=== PATIENT | female | born 1960 | race Caucasian/White ===

== ENCOUNTER 2018-12-13 06:32 | Emergency (ER) | payer OTHER ==
--- OUTSIDE RECORDS SUMMARY | 2018-12-13 06:35 | XMS REPORT | Continuity of Care Document ---
:1960 Author Organization [employer] Care Team Providers Name Role Phone [employer] Unavailable Unavailable Problems Problem Status Onset Classification Date Comments Source Date Reported Spinal stenosis in Active 01/31/20 Problem 09/22/2018 [facility] cervical region 15 Neuro (disorder) Diabetes mellitus Active Problem 09/22/2018 [facility] (disorder) [facility] Hyperlipidemia Active Problem 09/22/2018 [facility] (disorder) [facility] Hypertensive Active Problem 09/22/2018 [facility] disorder, systemic Neuro arterial (disorder) Hypothyroidism Active Problem 09/22/2018 [facility] (disorder) [facility] Medications Medication Details Route Status Patient Ordering Order Source Instructions Provider Date levothyroxine 88 mcg 88 Active [facility] (0.088 mg) oral microgram 018 Neuro tablet =1 tab, PO, Daily, 0 Refill(s) DULoxetine 20 mg oral 20 mg=1 No [facility] delayed release cap, PO, Longer 018 Neuro capsule QID, 0 Active Refill(s) betamethasone IM, ONCE, Active [facility] 0 018 Neuro Refill(s) Acetaminophen 325 MG 1 tab, Active [facility] / Hydrocodone PO, Q6H, 018 Neuro Bitartrate 5 MG Oral 0 Tablet Refill(s) meloxicam 15 mg oral 15 mg=1 No [facility] tablet tab, PO, Longer 018 Neuro Daily, 0 Active Refill(s) Advair Diskus 100 1 puff, No [facility] mcg-50 mcg inhalation INHALATIO Longer 018 Neuro powder N, BID, 0 Active Refill(s) pantoprazole 40 mg 40 mg=1 Active [facility] oral enteric coated tab, PO, 018 [facility] tablet Daily, 0 Refill(s) cyclobenzaprine 10 mg 10 mg=1 No [facility] oral tablet tab, PO, Longer 018 Neuro TID, 0 Active Refill(s) LORazepam 0.5 mg oral 0.5 mg=1 No [facility] tablet tab, PO, Longer 018 Neuro TID, 0 Active Refill(s) gabapentin 300 MG 300 mg=1 No [facility] Oral Capsule cap, PO, Longer 018 Neuro TID, 0 Active Refill(s) Ventolin HFA 2 puff, No [facility] INHALATIO [place]er 018 Neuro N, QID, 0 Active Refill(s) Vitamin D3 2000 intl 2,000 Active [facility] units oral tablet IntlUnit= 018 Neuro 1 tab, PO, Daily, 0 Refill(s) Hydrochlorothiazide 1 tab, Active [facility] 12.5 MG / Lisinopril PO, 018 Neuro 10 MG Oral Tablet Daily, 0 Refill(s) tramadol 50 mg=1 Active [facility] hydrochloride 50 MG tab, PO, 018 [facility] Oral Tablet Q4H, 0 Refill(s) levothyroxine 25 mcg 25 No [facility] (0.025 mg) oral microgram Longer 018 Neuro tablet =1 tab, Active PO, Daily, 0 Refill(s) baclofen 10 mg oral 10 mg=1 No [facility] tablet tab, PO, Longer 018 Neuro TID, 0 Active Refill(s) DULoxetine 30 mg oral 30 mg=1 No [facility] delayed release cap, PO, Longer 018 Neuro capsule QID, 0 Active Refill(s) pravastatin 40 mg 40 mg=1 Active [facility] oral tablet tab, PO, 018 Neuro Daily, 0 Refill(s) Allergies, Adverse Reactions, Alerts Substance Category Reaction Severity Reaction Status Date Comments Source type Reported Topamax Assertion Mild Drug Active [facility] allergy [facility] Immunizations No Data Provided for This Section Results No Data Provided for This Section Pathology Reports No Data Provided for This Section Diagnostic Reports No Data Provided for This Section Consultation Notes No Data Provided for This Section Discharge Summaries No Data Provided for This Section History and Physicals No Data Provided for This Section Vital Signs Vital Sign Value Date Comments Source Weight 150.455 03/04/2018 [facility] BMI Calculated 58.76 03/04/2018 [facility] Height 160.02 cm 03/04/2018 [facility] Systolic (mm Hg) 120 03/04/2018 [facility] Diastolic (mm Hg) 75 03/04/2018 [facility] Neuro Heart Rate 68 03/04/2018 [facility] Neuro Encounters Location Location Encounter Encounter Reason Attending ADM DC Status Source Details Type Number For Provider Date Date Visit Outpatient [id number] [facility] 02/25 [facility] [place] [facility] Ambulatory [id number] [place] 02/25 02/26 [facility] Neurology Pre-Reg [facility] [place] [id number] [place] 03/04 [facility] [place] [facility] Outpatient [id number] [place] 03/04 03/05 [facility] Neurology [facility] Neuro [place] Procedures No Data Provided for This Section Assessment and Plan No Data Provided for This Section Plan of Care No Data Provided for This Section Social History Social History Date Source Social History TypeResponse 03/04/2018 [facility] Neuro Smoking Status Former smoker; Exposure to Tobacco Smoke Unable to obtain; Cigarette Smoking Last 365 Days Unable to obtain; Reg Smoking Cessation Counseling No entered on: 03/04/18 Family History No Data Provided for This Section Advance Directives No Data Provided for This Section Functional Status No Data Provided for This Section
--- OUTSIDE RECORDS SUMMARY | 2018-12-13 06:35 | XMS REPORT | Summary of Care ---
:1960 Author Organization [facility] Neurology [place] Address [address] [place] [address]- Encounter HQ Peng(KITTY) [id number] Date(s): 03/04/18 - 03/04/18 [facility] [address] [place] [address]- [phone] Discharge Disposition: Home or Self Care Attending Physician: Isrrael Vega MD Vital Signs Most recent to oldest [Reference Range]: 1 Height 160.02 cm (03/04/18 1:20 PM) Blood Pressure [90-140/60-90 mmHg] 120/75 mmHg (03/04/18 1:20 PM) Peripheral Pulse Rate [60-100 bpm] 68 bpm (03/04/18 1:20 PM) Weight 150.455 kg (03/04/18 1:20 PM) Body Mass Index 58.76 m2 (03/04/18 1:20 PM) Problem List Condition Effective Dates Status Health Status Informant Diabetes mellitus(Confirmed) Active Hyperlipidemia(Confirmed) Active Hypertension(Confirmed) Active Hypothyroidism(Confirmed) Active Spinal stenosis, cervical 01/30/15 Active region(Confirmed) Allergies, Adverse Reactions, Alerts Substance Reaction Severity Status Topamax Mild Active Medications acetaminophen-hydrocodone 325 mg-5 mg oral tablet 1 tab, PO, Q6H, 0 Refill(s) Start Date: 06/19/17 Status: OrderedAdvair Diskus 100 mcg-50 mcg inhalation powder 1 puff, INHALATION, BID, 0 Refill(s) Start Date: 06/19/17 Stop Date: 03/04/18 Status: Discontinuedbaclofen 10 mg oral tablet 10 mg=1 tab, PO, TID, 0 Refill(s) Start Date: 06/19/17 Stop Date: 03/04/18 Status: Discontinuedbetamethasone IM, ONCE, 0 Refill(s) Start Date: 06/19/17 Status: Orderedcyclobenzaprine 10 mg oral tablet 10 mg=1 tab, PO, TID, 0 Refill(s) Start Date: 06/19/17 Stop Date: 03/04/18 Status: DiscontinuedDULoxetine 20 mg oral delayed release capsule 20 mg=1 cap, PO, QID, 0 Refill(s) Start Date: 06/19/17 Stop Date: 03/04/18 Status: DiscontinuedDULoxetine 30 mg oral delayed release capsule 30 mg=1 cap, PO, QID, 0 Refill(s) Start Date: 06/19/17 Stop Date: 03/04/18 Status: Discontinuedgabapentin 300 mg oral capsule 300 mg=1 cap, PO, TID, 0 Refill(s) Start Date: 06/19/17 Stop Date: 03/04/18 Status: Discontinuedhydrochlorothiazide-lisinopril 12.5 mg-10 mg oral tablet 1 tab, PO, Daily, 0 Refill(s) Start Date: 06/19/17 Status: Orderedlevothyroxine 25 mcg (0.025 mg) oral tablet 25 microgram=1 tab, PO, Daily, 0 Refill(s) Start Date: 06/19/17 Stop Date: 03/04/18 Status: Discontinuedlevothyroxine 88 mcg (0.088 mg) oral tablet 88 microgram=1 tab, PO, Daily, 0 Refill(s) Start Date: 03/04/18 Status: OrderedLORazepam 0.5 mg oral tablet 0.5 mg=1 tab, PO, TID, 0 Refill(s) Start Date: 06/19/17 Stop Date: 03/04/18 Status: DiscontinuedLORazepam 0.5 mg oral tablet 0.5 mg=1 tab, PO, TID, 0 Refill(s) Start Date: 06/19/17 Status: Orderedmeloxicam 15 mg oral tablet 15 mg=1 tab, PO, Daily, 0 Refill(s) Start Date: 06/19/17 Stop Date: 03/04/18 Status: Discontinuedpantoprazole 40 mg oral enteric coated tablet 40 mg=1 tab, PO, Daily, 0 Refill(s) Start Date: 06/19/17 Status: Orderedpravastatin 40 mg oral tablet 40 mg=1 tab, PO, Daily, 0 Refill(s) Start Date: 06/19/17 Status: Orderedtramadol 50 mg oral tablet 50 mg=1 tab, PO, Q4H, 0 Refill(s) Start Date: 06/19/17 Status: OrderedVentolin HFA 2 puff, INHALATION, QID, 0 Refill(s) Start Date: 06/19/17 Stop Date: 03/04/18 Status: DiscontinuedVitamin D3 2000 intl units oral tablet 2,000 IntlUnit=1 tab, PO, Daily, 0 Refill(s) Start Date: 06/19/17 Status: Ordered Results No data available for this section Immunizations No data available for this section Procedures No data available for this section Social History Social History Type Response Smoking Status Former smoker; Exposure to Tobacco Smoke Unable to obtain; Cigarette Smoking Last 365 Days Unable to obtain; Reg Smoking Cessation Counseling No entered on: 03/04/18 Assessment and Plan No data available for this section
--- OUTSIDE RECORDS SUMMARY | 2018-12-13 06:35 | XMS REPORT | Summary of Care ---
:1960 Author Organization [facility] Neurology [place] Address [address] [place] [address]- phone Encounter [facility] Anujntr_valdo(FIN) [id number] Date(s): 02/25/18 - 02/25/18 [facility] [address] [place] [address]- [phone] Discharge Disposition: Home or Self Care Attending Physician: Isrrael Vega MD Referring Physician: Isrrael Vega MD Vital Signs No data available for this section Problem List Condition Effective Dates Status Health Status Informant Diabetes mellitus(Confirmed) Active Hyperlipidemia(Confirmed) Active Hypertension(Confirmed) Active Hypothyroidism(Confirmed) Active Spinal stenosis, cervical 01/30/15 Active region(Confirmed) Allergies, Adverse Reactions, Alerts Substance Reaction Severity Status Topamax Mild Active Medications No data available for this section Results No data available for this section [...]
[2018-12-13] MEDS ORDERED: dexAMETHasone 10 MG/ML VIAL ONE (07:38)
[2018-12-13] MEDS ORDERED: DIAZEPAM 5 MG TABLET ONE (07:38)
[2018-12-13] MEDS ORDERED: MORPHINE 4 MG/ML SYR ONE (07:39)
[2018-12-13] MEDS ORDERED: KETOROLAC 30 MG/ML INJ ONE (07:39)
--- NOTE | 2018-12-13 09:05 | ER ---
Nurse's Notes [facility] Name: Mayda Jean Age: 58 yrs Sex: Female : 1960 Arrival Date: 12/13/2018 Time: 06:34 Bed 6 Private MD: Diagnosis: Lumbago with sciatica, left side;Urinary tract infection, site not specified Presentation: 12/13 06:44 Presenting complaint: Patient states: mid to left lower back pain X3 days. pt describes ak1 pain as sharp pain. pt with constant numbness to left leg for "a while" pt PCP dx sciatica with MRI needing to be scheduled. Transition of care: patient was not received from another setting of care. Onset of symptoms is unknown. Risk Assessment: Do you want to hurt yourself or someone else? Patient reports no desire to harm self or others. Initial Sepsis Screen: Does the patient meet any 2 criteria? No. Patient's initial sepsis screen is negative. Does the patient have a suspected source of infection? No. Patient's initial sepsis screen is negative. Note pt ambulates with a cane. Care prior to arrival: None. 06:44 Method Of Arrival: Wheelchair ak1 06:44 Acuity: LUIS 3 ak1 Triage Assessment: 06:52 General: Appears in no apparent distress. Behavior is calm, cooperative. Pain: ak1 Complains of pain in back. EENT: No signs and/or symptoms were reported regarding the EENT system. Neuro: Level of Consciousness is awake, alert, obeys commands, Oriented to person, place, time, situation, Moves all extremities. Speech is normal. Cardiovascular: No deficits noted. Respiratory: Airway is patent Respiratory effort is even, unlabored. GI: No signs and/or symptoms were reported involving the gastrointestinal system. : No signs and/or symptoms were reported regarding the genitourinary system. Derm: No signs and/or symptoms reported regarding the dermatologic system. Musculoskeletal: Range of motion: limited in left leg due to pain. Reports pain in back. Historical: - Allergies: 06:52 Topamax; ak1 - Home Meds: 06:52 levothyroxine oral [Active]; Lisinopril Oral [Active]; pravastatin oral oral [Active]; ak1 Vitamin D Oral [Active]; Ventolin Rotahaler/Rotacaps Inhl [Active]; [place] Oral [Active]; Tramadol Oral [Active]; - PMHx: 06:52 COPD; Hypothyroidism; High Cholesterol; Hypertension; Headaches; ak1 - PSHx: 06:52 Cholecystectomy; left heel sx; neck fusion; ak1 - Immunization history:: Adult Immunizations unknown. - Social history:: Smoking status: Patient/guardian denies using tobacco. - Ebola Screening: : No symptoms or risks identified at this time. Screenin:54 Abuse screen: Denies threats or abuse. Denies injuries from another. Nutritional ak1 screening: No deficits noted. Tuberculosis screening: No symptoms or risk factors identified. Fall Risk Ambulatory Aid- Crutches/Cane/Walker (15 pts). Assessment: 07:15 General: Appears in no apparent distress. Behavior is calm, cooperative. Pain: iw Complains of pain in back Pain radiates to left leg. Neuro: Level of Consciousness is awake, alert, obeys commands, Oriented to person, place, time, situation, Moves all extremities. Cardiovascular: Patient's skin is warm and dry. Respiratory: Respiratory effort is even, unlabored, Respiratory pattern is regular. Derm: Skin is intact, is healthy with good turgor. Musculoskeletal: 08:23 Reassessment: Patient appears in no apparent distress at this time. Patient and/or iw family updated on plan of care and expected duration. Pain level reassessed. Patient is alert, oriented x 3, equal unlabored respirations, skin warm/dry/pink. 08:41 Reassessment: pt states pain has improved, pain now 5/10. iw 09:12 Reassessment: Patient appears in no apparent distress at this time. Patient and/or iw family updated on plan of care and expected duration. Pain level reassessed. Patient is alert, oriented x 3, equal unlabored respirations, skin warm/dry/pink. Patient states feeling better. Patient states symptoms have improved. Vital Signs: 06:52 BP 153 / 82; Pulse 77; Resp 20; Temp 98.0; Pulse Ox 95% on R/A; Weight 158.76 kg (R); ak1 Height 5 ft. 4 in. (162.56 cm) (R); Pain 10/10; 06:52 Body Mass Index 60.08 (158.76 kg, 162.56 cm) ak1 ED Course: 06:34 Patient arrived in ED. ds1 06:37 Filiberto Gregg PA is PHCP. [facility] 06:37 Joshua Villeda MD is Attending Physician. [facility] 06:48 Triage completed. ak1 06:52 Arm band placed on Patient placed in an exam room, on a stretcher, on pulse oximetry, ak1 Patient notified of wait time. 06:54 Patient has correct armband on for positive identification. Bed in low position. Call ak1 light in reach. Side rails up X 1. Adult w/ patient. Pulse ox on. NIBP on. 07:08 Amanda Eugene, RN is Primary Nurse. iw 08:23 No provider procedures requiring assistance completed. Patient did not have IV access iw during this emergency room visit. 08:41 Urine collected: hat,yellow \\T\\ cloudy. 3 Administered Medications: 07:42 Drug: Ketorolac 30 mg Route: IM; Site: right deltoid; iw 08:53 Follow up: Response: No adverse reaction; Pain is decreased iw 07:45 Drug: morphine 4 mg {Note: RASS:0.} Route: IM; Site: left deltoid; iw 08:52 Follow up: Response: No adverse reaction; Pain is decreased; RASS: Alert and Calm (0) iw 07:47 Drug: Valium 5 mg Route: PO; iw 08:53 Follow up: Response: No adverse reaction iw 07:47 Drug: Decadron 10 mg Route: IM; Site: left deltoid; iw 08:53 Follow up: Response: No adverse reaction; Pain is decreased iw Outcome: 09:04 Discharge ordered by . [facility] 09:15 Discharged to home ambulatory, with family. ss 09:15 Condition: good 09:15 Discharge instructions given to patient, family, Instructed on discharge instructions, follow up and referral plans. medication usage, Demonstrated understanding of instructions, follow-up care, medications, Prescriptions given X 3. 09:16 Patient left the ED. ss Signatures: Filiberto Gregg PA PA jmm Sanford, Demi ds1 Amanda Eugene, YANIQUE CHANEL Cristina De Paz RN RN Sneha Keys RN RN [facility] Kianna Gutierrez [facility]
--- NOTE | 2018-12-13 09:05 | EDPHYS ---
Physician Documentation [facility] Name: Mayda Jean Age: 58 yrs Sex: Female : 1960 Arrival Date: 12/13/2018 Time: 06:34 Bed 6 Private MD: ED Physician Joshua Villeda HPI: 12/13 07:07 This 58 yrs old Female presents to ER via Wheelchair with complaints of Back jmm Pain. 07:07 The patient presents with pain that is acute, with no known mechanism of injury. Onset: jmm The symptoms/episode began/occurred gradually, 2 day(s) ago. The pain radiates to the left leg. Associated signs and symptoms: Pertinent positives: numbness, Pertinent negatives: abdominal pain, dysuria, fever, urinary retention. This is a 58 year old female with a history of COPD, hypothyroidism, HTN, that presents to the ED with complaints of worsening left sided back pain which radiates down the leg. Patient denies bowel or bladder issues. Denies fever, denies vomiting, denies abdominal pain, but states having nausea. . Historical: - Allergies: 06:52 Topamax; ak1 - Home Meds: 06:52 levothyroxine oral [Active]; Lisinopril Oral [Active]; pravastatin oral oral [Active]; ak1 Vitamin D Oral [Active]; Ventolin Rotahaler/Rotacaps Inhl [Active]; [place] Oral [Active]; Tramadol Oral [Active]; - PMHx: 06:52 COPD; Hypothyroidism; High Cholesterol; Hypertension; Headaches; ak1 - PSHx: 06:52 Cholecystectomy; left heel sx; neck fusion; ak1 - Immunization history:: Adult Immunizations unknown. - Social history:: Smoking status: Patient/guardian denies using tobacco. - Ebola Screening: : No symptoms or risks identified at this time. ROS: 07:07 Constitutional: Negative for fever, chills, and weight loss, Neck: Negative for injury, jmm pain, and swelling, Respiratory: Negative for shortness of breath, cough, wheezing, and pleuritic chest pain. 07:07 Abdomen/GI: Positive for nausea, Negative for abdominal pain, vomiting, diarrhea. 07:07 Back: Positive for pain with movement. 07:07 All other systems are negative. Exam: 07:07 Constitutional: This is a well developed, well nourished patient who is awake, alert, jmm and in no acute distress. Head/Face: atraumatic. Eyes: EOMI, no conjunctival erythema appreciated ENT: Moist Mucus Membranes Neck: Trachea midline, Supple Chest/axilla: Normal chest wall appearance and motion. Cardiovascular: Regular rate and rhythm. No edema appreciated Respiratory: Normal respirations, no respiratory distress appreciated 07:07 Skin: General appearance color normal MS/ Extremity: Moves all extremities, no obvious deformities appreciated, no edema noted to the lower extremities Neuro: Awake and alert, normal gait Psych: Behavior is normal, Mood is normal, Patient is cooperative and pleasant 07:07 Back: left paraspinal pain on palpation, no midline tenderness appreciated. . Vital Signs: 06:52 BP 153 / 82; Pulse 77; Resp 20; Temp 98.0; Pulse Ox 95% on R/A; Weight 158.76 kg (R); ak1 Height 5 ft. 4 in. (162.56 cm) (R); Pain 10/10; 06:52 Body Mass Index 60.08 (158.76 kg, 162.56 cm) ak1 MDM: 07:07 Patient medically screened. [facility] 09:04 Data reviewed: vital signs, nurses notes. Counseling: I had a detailed discussion with [facility] the patient and/or guardian regarding: the historical points, exam findings, and any diagnostic results supporting the discharge/admit diagnosis, the need for outpatient follow up, to return to the emergency department if symptoms worsen or persist or if there are any questions or concerns that arise at home. 09:04 ED course: Pain is relieved in the ED. Patient is able to ambulate. I do not suspect [facility] [place] or cord compression. patient ua concerning for UTI. Patient is otherwise given strict return precautions. Patient understood and agrees with the plan of care. . 12/13 08:50 Order name: Urine Dipstick--Ancillary (enter results) 12/13 08:50 Order name: Urine --Ancillary (enter results) bd 12/13 07:21 Order name: Urine Dipstick-Ancillary (obtain specimen); Complete Time: 07:35 [facility] Administered Medications: 07:42 Drug: Ketorolac 30 mg Route: IM; Site: right deltoid; iw 08:53 Follow up: Response: No adverse reaction; Pain is decreased iw 07:45 Drug: morphine 4 mg {Note: RASS:0.} Route: IM; Site: left deltoid; iw 08:52 Follow up: Response: No adverse reaction; Pain is decreased; RASS: Alert and Calm (0) iw 07:47 Drug: Valium 5 mg Route: PO; iw 08:53 Follow up: Response: No adverse reaction iw 07:47 Drug: Decadron 10 mg Route: IM; Site: left deltoid; iw 08:53 Follow up: Response: No adverse reaction; Pain is decreased iw Disposition: 12/13/18 09:04 Discharged to Home. Impression: Lumbago with sciatica, left side, Urinary tract infection, site not specified. - Condition is Stable. - Discharge Instructions: Sciatica, Urinary Tract Infection, Adult. - Prescriptions for Cephalexin 500 mg Oral Capsule - take 1 capsule by ORAL route every 12 hours for 10 days; 20 capsule. Valium 5 mg Oral Tablet - take 1 tablet by ORAL route every 8 hours As needed; 20 tablet. - Medication Reconciliation Form, Thank You Letter, Antibiotic Education, Prescription Opioid Use form. - Follow up: Private Physician; When: 2 - 3 days; Reason: Recheck today's complaints, Continuance of care, Re-evaluation by your physician. Signatures: Dispatcher [employer] EDMS Filiberto Gregg PA PA jmm Williams, Irene RN Cristina Long RN RN ss Krenek, Amber RN RN ak1 Corrections: (The following items were deleted from the chart) 09:05 09:04 12/13/2018 09:04 Discharged to Home. Impression: Lumbago with sciatica, left m side. Condition is Stable. Forms are Medication Reconciliation Form, Thank You Letter, Antibiotic Education, Prescription Opioid Use. Follow up: Private Physician; When: 2 - 3 days; Reason: Recheck today's complaints, Continuance of care, Re-evaluation by your physician. nhan 09:16 09:05 12/13/2018 09:04 Discharged to Home. Impression: Lumbago with sciatica, left ss side; Urinary tract infection, site not specified. Condition is Stable. Discharge Instructions: Sciatica. Forms are Medication Reconciliation Form, Thank You Letter, Antibiotic Education, Prescription Opioid Use. Follow up: Private Physician; When: 2 - 3 days; Reason: Recheck today's complaints, Continuance of care, Re-evaluation by your physician. nhan
[2018-12-13 10:35] LABS: Urine Blood 1+ (NEG); Urine Glucose NEGATIVE (NEG); Urine Protein NEGATIVE (NEG)
[2018-12-13 15:19] VITALS: BP 153/82; TEMP 98; O2SAT 95
== END 2018-12-13 09:16 | disposition home or self-care (01) ==
LOC: ER 06:32
DX: N39.0 Urinary tract infection, site not specified (principal); I10 Essential (primary) hypertension; J44.9 Chronic obstructive pulmonary disease, unspecified; E03.9 Hypothyroidism, unspecified; E78.00 Pure hypercholesterolemia, unspecified; Z88.8 Allergy status to other drugs, medicaments and biological substances
CPT/HCPCS: 81025; 81003; 96372; 99284; J1100

== ENCOUNTER → 2023-06-20 | Emergency (ER) | payer OTHER ==
[~2023-06-20] MED LIST: KETOROLAC 30 MG/ML INJ ONE; dexAMETHasone 10 MG/ML VIAL ONE
--- NOTE | 2023-06-20 18:09 | ER ---
Nurse's Notes [facility] Name: Mayda Jean Age: 63 yrs Sex: Female : 1960 Arrival Date: 06/20/2023 Time: 17:52 Bed 20 Private MD: Diagnosis: Low back pain Presentation: 06/19 18:04 Chief complaint: Patient states: left low back pain since Thursday, pt reports pain aa5 started getting up from a alexander. 18:05 Coronavirus screen: At this time, the client does not indicate any symptoms associated aa5 with coronavirus-19. Ebola Screen: Patient denies travel to an Ebola-affected area in the 21 days before illness onset. Initial Sepsis Screen: Does the patient meet any 2 criteria? No. Patient's initial sepsis screen is negative. Does the patient have a suspected source of infection? No. Patient's initial sepsis screen is negative. Risk Assessment: Do you want to hurt yourself or someone else? Patient reports no desire to harm self or others. Onset of symptoms was June 2023. 18:05 Method Of Arrival: Ambulatory aa5 18:05 Acuity: LUIS 3 aa5 Triage Assessment: 18:05 General: Appears in no apparent distress. uncomfortable, Behavior is calm, cooperative. rs5 Musculoskeletal: Circulation, motion, and sensation intact. Historical: - Allergies: 18:03 Topamax; aa5 - PMHx: 18:03 COPD; Headaches; High Cholesterol; Hypertension; Hypothyroidism; aa5 - Immunization history:: Adult Immunizations unknown. - Social history:: Smoking status: . Screenin:05 [facility] ED Fall Risk Assessment (Adult) History of falling in the last 3 months, rs5 including since admission No falls in past 3 months (0 pts) Confusion or Disorientation No (0 pts) Intoxicated or Sedated No (0 pts) Impaired Gait No (0 pts) Mobility Assist Device Used No (0 pt) Altered Elimination No (0 pt) Score/Fall Risk Level 0 - 2 = Low Risk Oriented to surroundings, Maintained a safe environment. 18:05 Abuse screen: Denies threats or abuse. Nutritional screening: No deficits noted. rs5 Tuberculosis screening: No symptoms or risk factors identified. Assessment: 18:10 General: Appears in no apparent distress. uncomfortable, Behavior is calm, cooperative. rs5 Pain: Complains of pain in back Pain currently is 5 out of 10 on a pain scale. Quality of pain is described as aching, Is continuous. Neuro: Level of Consciousness is awake, alert, obeys commands, Oriented to person, place, time, situation. Cardiovascular: Patient's skin is warm and dry. Rhythm is regular. Cardiovascular:. Respiratory: Respiratory effort is even, unlabored, Respiratory pattern is regular, symmetrical. 18:10 GI: Abdomen is round non-distended, Abd is soft and non tender X 4 quads. : No signs rs5 and/or symptoms were reported regarding the genitourinary system. EENT: No signs and/or symptoms were reported regarding the EENT system. Derm: Skin is intact, Skin is pink, warm \T\ dry. Musculoskeletal: Range of motion: intact in all extremities. 18:15 Reassessment: No changes from previously documented assessment. rs5 Vital Signs: 18:05 BP 131 / 75; Pulse 72; Resp 18 S; Temp 97.5(TE); Pulse Ox 98% on R/A; Weight 153.31 kg aa5 (R); Height 5 ft. 4 in. (R); 18:05 BP 130 / 68; Pulse 75; Resp 18; Pulse Ox 99% on R/A; rs5 18:05 Body Mass Index 58.02 (153.31 kg, 162.56 cm) aa5 ED Course: 17:56 Patient arrived in ED. mg5 18:03 Sara Ayala F[facility]-C [facility]. kb 18:03 Xu Devlin MD is Attending Physician. kb 18:03 Arm band placed on. aa5 18:05 Patient has correct armband on for positive identification. Placed in gown. Bed in low rs5 position. Call light in reach. Side rails up X2. 18:05 No provider procedures requiring assistance completed. rs5 18:06 Triage completed. aa5 18:25 Toni Rodriguez, YANIQUE is Primary Nurse. rs5 18:30 IV discontinued, intact, bleeding controlled, No redness/swelling at site. Pressure rs5 dressing applied. Administered Medications: 18:05 Drug: Ketorolac IM 30 mg IM once Route: IM; Site: right deltoid; rs5 18:20 Follow up: Response: No adverse reaction rs5 18:09 Drug: Dexamethasone IM 10 mg IM once Route: IM; Site: left deltoid; rs5 18:20 Follow up: Response: No adverse reaction rs5 Medication: 18:05 VIS not applicable for this client. rs5 Outcome: 18:08 Discharge ordered by . elver 18:30 Discharged to home ambulatory, rs5 18:30 Condition: stable 18:30 Discharge instructions given to patient, family, Instructed on discharge instructions, follow up and referral plans. Demonstrated understanding of instructions, follow-up care, medications, Prescriptions given X 2, 18:39 Patient left the ED. rs5 Signatures: Sara Ayala, JC-C JC-Caty Carr RN RN aa5 Toni Rodriguez RN RN rs5 Bianca Dotson mg5 Corrections: (The following items were deleted from the chart) 18:06 18:04 Chief complaint: Patient states: left low back pain since Thursday, pt reports aa5 she stood up from a alexander. aa5 18:07 18:05 BP 131 / 75; Pulse 72bpm; Resp 18bpm; Spontaneous; Pulse Ox 98% RA; Temp 97.5F aa5 Temporal; aa5 19:31 18:10 Pain: Complains of pain in back Pain currently is 7 out of 10 on a pain scale. rs5 Quality of pain is described as aching, Is continuous, rs5
--- NOTE | 2023-06-20 18:09 | EDPHYS ---
Physician Documentation [facility] Name: Mayda Jean Age: 63 yrs Sex: Female : 1960 Arrival Date: 06/20/2023 Time: 17:52 Bed 20 Private MD: ED Physician Xu Devlin HPI: 06/19 19:41 This 63 yrs old Female presents to ER via Ambulatory with complaints of Back Pain. kb 19:41 Patient is a 63-year-old female who presents for left low back/buttock pain that kb started 4 days ago after she twisted to get out of a alexander at [employer]. Denies any falls, injury or trauma. Reports pain with movement only. Denies pain at rest or with palpation. Denies any numbness or tingling. Denies incontinence or retention.. Historical: - Allergies: 18:03 Topamax; aa5 - PMHx: 18:03 COPD; Headaches; High Cholesterol; Hypertension; Hypothyroidism; aa5 - Immunization history:: Adult Immunizations unknown. - Social history:: Smoking status: . ROS: 19:41 Constitutional: As per HPI kb Exam: 19:41 Constitutional: This is a well developed, well nourished patient who is awake, alert, kb and in no acute distress. Head/Face: Normocephalic, atraumatic. ENT: Moist Mucous membranes Cardiovascular: Regular rate Respiratory: Respirations even and unlabored. No increased work of breathing. Talking in full sentences Abdomen/GI: Soft, non-tender. No distention Back: No spinal tenderness. No costovertebral tenderness. Full range of motion. Skin: Warm, dry with normal turgor. Normal color. MS/ Extremity: Pulses equal, no cyanosis. Neurovascular intact. Full, normal range of motion. Neuro: Awake and alert, GCS 15, oriented to person, place, time, and situation. Moves all extremities. Normal gait. 19:44 Neuro: Sensation: is normal, kb Vital Signs: 18:05 BP 131 / 75; Pulse 72; Resp 18 S; Temp 97.5(TE); Pulse Ox 98% on R/A; Weight 153.31 kg aa5 (R); Height 5 ft. 4 in. (R); 18:05 BP 130 / 68; Pulse 75; Resp 18; Pulse Ox 99% on R/A; rs5 18:05 Body Mass Index 58.02 (153.31 kg, 162.56 cm) aa5 MDM: 18:03 Patient medically screened. kb 19:43 Differential diagnosis: Strain, herniated disc, sciatica. Data reviewed: vital signs, kb nurses notes. Test considered but Not performed: X-ray: X-ray lumbar spine considered but patient had no injury or trauma and has no bony tenderness. Counseling: I had a detailed discussion with the patient and/or guardian regarding the historical points, exam findings, and any diagnostic results supporting the discharge/admit diagnosis, the need for outpatient follow up, a family practitioner, to return to the emergency department if symptoms worsen or persist or if there are any questions or concerns that arise at home. Administered Medications: 18:05 Drug: Ketorolac IM 30 mg IM once Route: IM; Site: right deltoid; rs5 18:20 Follow up: Response: No adverse reaction rs5 18:09 Drug: Dexamethasone IM 10 mg IM once Route: IM; Site: left deltoid; rs5 18:20 Follow up: Response: No adverse reaction rs5 Disposition: 06/20 08:22 Co-signature as Attending Physician, Xu Devlin MD I agree with the assessment and cp3 plan of care. Disposition Summary: 06/20/23 18:08 Discharge Ordered Notes: Location: Home kb Condition: Stable kb Diagnosis - Low back pain kb Followup: kb - With: Emergency Department - When: As needed - Reason: Worsening of condition Followup: kb - With: Private Physician - When: 2 - 3 days - Reason: Recheck today's complaints, Continuance of care, Re-evaluation by your physician Discharge Instructions: - Discharge Summary Sheet - Musculoskeletal Pain kb Forms: - Medication Reconciliation Form kb - Thank You Letter kb - Antibiotic Education kb - Prescription Opioid Use kb - Patient Portal Instructions kb - Leadership Thank You Letter Prescriptions: - Diclofenac Sodium 75 mg Oral tablet, delayed release (enteric coated) - take 1 tablet ORAL route 2 times per day As needed; 30 tablet; Refills: 0, kb Product Selection Permitted - orphenadrine citrate 100 mg Oral Tablet Sustained Release - take 1 tablet ORAL route 2 times per day As needed; 20 tablet; Refills: 0, kb Product Selection Permitted Signatures: Sara Ayala FNP-C FNP-Ckb Pinckney, Cwanza, MD MD cp3 Caty Celestin, RN RN aa5 Toni Rodriguez, RN RN rs5
[2023-06-20 19:24] VITALS: BP 131/75; TEMP 97.5; O2SAT 98
== END ==
LOC: ER 17:52
DX: M54.50 Low back pain, unspecified (principal); Z88.8 Allergy status to other drugs, medicaments and biological substances
CPT/HCPCS: 96372; 99284; J1100

== ENCOUNTER 2024-04-09 14:54 | Emergency (ER) | payer OTHER ==
--- NOTE | 2024-04-09 15:42 | EDPHYS ---
Physician Documentation [facility] Name: Mayda Jean Age: 63 yrs Sex: Female : 1960 Arrival Date: 04/09/2024 Time: 14:54 Bed 15 Private MD: ED Physician Seth Perkins HPI: 04/09 15:43 This 63 yrs old Female presents to ER via Ambulatory with complaints of Back dr5 Pain. 15:43 The patient presents with pain that is chronic, with no known mechanism of injury. The dr5 symptoms are located in the low back. Patient is a 63-year-old female with history of hypertension, hypothyroidism, COPD, high cholesterol with chronic midline back pain. Patient reports that she needs a steroid shot and anti-inflammatory. Patient denies trauma, falls, bowel or bladder incontinence, perirectal numbness, numbness or tingling, or fever.. Historical: - Allergies: 15:17 Topamax; iw - Home Meds: 15:17 glucosamine-chondroitin oral daily [Active]; spironolactone 100 mg Oral tablet daily iw [Active]; pravastatin 80 mg oral tablet daily [Active]; levothyroxine 125 mcg oral capsule daily [Active]; fluticasone propion-salmeterol 113 mcg-14 mcg/actuation inhalation Aerosol Powder, Breath Activ.with Sensor [Active]; albuterol sulfate 1.25 mg/3 mL Inhl Solution for Nebulization [Active]; aspirin 81 mg Oral capsule daily [Active]; - PMHx: 15:17 Headaches; High Cholesterol; COPD; Hypertension; Hypothyroidism; iw - Immunization history:: Adult Immunizations not up to date. - Infectious Disease History:: Denies. - Social history:: Smoking status: Patient/guardian denies using tobacco. ROS: 15:43 Constitutional: as per hpi dr5 Exam: 15:43 Constitutional: This is a well developed, well nourished patient who is awake, alert, dr5 and in no acute distress. Head/Face: Normocephalic, atraumatic. Eyes: Pupils equal round and reactive to light, extra-ocular motions intact. Lids and lashes normal. Conjunctiva and sclera are non-icteric and not injected. Cornea within normal limits. Periorbital areas with no swelling, redness, or edema. ENT: Nares patent. No nasal discharge, no septal abnormalities noted. Tympanic membranes are normal and external auditory canals are clear. Oropharynx with no redness, swelling, or masses, exudates, or evidence of obstruction, uvula midline. Mucous membranes moist. Neck: Trachea midline, no thyromegaly or masses palpated, and no cervical lymphadenopathy. Supple, full range of motion without nuchal rigidity, or vertebral point tenderness. No Meningismus. Chest/axilla: Normal chest wall appearance and motion. Nontender with no deformity. No lesions are appreciated. Cardiovascular: Regular rate and rhythm with a normal S1 and S2. Normal PMI, no JVD. No pulse deficits. Respiratory: Lungs have equal breath sounds bilaterally, clear to auscultation. No rales, rhonchi or wheezes noted. No increased work of breathing, no retractions or nasal flaring. Back: No spinal tenderness. No costovertebral tenderness. Full range of motion. Skin: Warm, dry with normal turgor. Normal color with no rashes, no lesions, and no evidence of cellulitis. 15:45 Neuro: Exam negative for acute changes, dr5 Vital Signs: 15:16 BP 156 / 88; Pulse 73; Resp 19; Temp 96.9; Pulse Ox 98% on R/A; Weight 158.76 kg; iw Height 5 ft. 4 in. ; Pain 6/10; 16:05 BP 151 / 84; Pulse 77; Resp 17; Temp 97.8(O); Pulse Ox 97% ; rs5 15:16 Body Mass Index 60.08 (158.76 kg, 162.56 cm) iw 15:16 Pain Scale: Adult iw MDM: 15:18 Medical Screening Exam initiated dr5 15:43 Differential diagnosis: Obesity sprain, Strain. Data reviewed: vital signs, nurses dr5 notes. Care significantly affected by the following chronic conditions: Hypertension, Chronic Obstructive Pulmonary Disease, Hyperlipidemia. Care significantly affected by the following Social Determinants of Health: Poor access to healthcare and/or lack of insurance, Poor access to transportation, Problems related to employment. Counseling: I had a detailed discussion with the patient and/or guardian regarding the historical points, exam findings, and any diagnostic results supporting the discharge/admit diagnosis, the presence of at least one elevated blood pressure reading (>120/80) during this emergency department visit, the need for outpatient follow up, for definitive care, a family practitioner, a shipyard painter helper, to return to the emergency department if symptoms worsen or persist or if there are any questions or concerns that arise at home. ED course: Dexamethasone Injection and Toradol Injection given in office. Patient doesn't want an x-ray. Patient states all she is wanting are the two injections. Will discharge patient to follow up with PCP as needed. All questions answered and patient is agreeable to plan.. Administered Medications: 15:59 Drug: Dexamethasone IM 10 mg IM once Route: IM; Site: right deltoid; iw 15:59 Drug: Ketorolac IM 30 mg IM once Route: IM; Site: left deltoid; iw Disposition Summary: 04/09/24 15:41 Discharge Ordered Notes: Location: Home dr5 Condition: Stable dr5 Diagnosis - Strain of muscle, fascia and tendon of lower back dr5 Followup: dr5 - With: Emergency Department - When: As needed - Reason: Worsening of condition Followup: dr5 - With: Private Physician - When: 1 - 2 days - Reason: Recheck today's complaints, Continuance of care, Re-evaluation by your physician Discharge Instructions: - Discharge Summary Sheet dr5 - Acute Back Pain, Adult dr5 Forms: - Medication Reconciliation Form dr5 - Patient Portal Instructions dr5 - Leadership Thank You Letter dr5 Addendum: 04/11/2024 07:40 I was immediately available for consultation during this patient's visit. I did not e c2 personally see the patient or discuss the patient with the ASHLEY. . Signatures: Amanda Eugene RN RN Seth Perkins MD MD ec2 Poli Sandhu, NITROGLYCERIN NITRATOR OPERATOR BATCH-C NITROGLYCERIN NITRATOR OPERATOR BATCH-Cdr5
--- NOTE | 2024-04-09 15:42 | ER ---
Nurse's Notes [facility] Name: Mayda Jean Age: 63 yrs Sex: Female : 1960 Arrival Date: 04/09/2024 Time: 14:54 Bed 15 Private MD: Diagnosis: Strain of muscle, fascia and tendon of lower back Presentation: 04/09 15:16 Chief complaint: Patient states: left sided back pain started a week ago , got worse iw over the last few days, she has had this pain before and we normally give her a shot and she feels better. Coronavirus screen: At this time, the client does not indicate any symptoms associated with coronavirus-19. Ebola Screen: No symptoms or risks identified at this time. Initial Sepsis Screen: Does the patient meet any 2 criteria? No. Patient's initial sepsis screen is negative. Does the patient have a suspected source of infection? No. Patient's initial sepsis screen is negative. Risk Assessment: Do you want to hurt yourself or someone else? Patient reports no desire to harm self or others. Onset of symptoms was April 04, 2024. 15:16 Method Of Arrival: Ambulatory iw 15:16 Acuity: LUIS 3 iw Historical: - Allergies: 15:17 Topamax; iw - Home Meds: 15:17 glucosamine-chondroitin oral daily [Active]; spironolactone 100 mg Oral tablet daily iw [Active]; pravastatin 80 mg oral tablet daily [Active]; levothyroxine 125 mcg oral capsule daily [Active]; fluticasone propion-salmeterol 113 mcg-14 mcg/actuation inhalation Aerosol Powder, Breath Activ.with Sensor [Active]; albuterol sulfate 1.25 mg/3 mL Inhl Solution for Nebulization [Active]; aspirin 81 mg Oral capsule daily [Active]; - PMHx: 15:17 Headaches; High Cholesterol; COPD; Hypertension; Hypothyroidism; iw - Immunization history:: Adult Immunizations not up to date. - Infectious Disease History:: Denies. - Social history:: Smoking status: Patient/guardian denies using tobacco. Screenin:00 [facility] ED Fall Risk Assessment (Adult) History of falling in the last 3 months, iw including since admission No falls in past 3 months (0 pts) Confusion or Disorientation No (0 pts) Intoxicated or Sedated No (0 pts) Impaired Gait No (0 pts) Mobility Assist Device Used No (0 pt) Altered Elimination No (0 pt) Score/Fall Risk Level 0 - 2 = Low Risk Oriented to surroundings, Maintained a safe environment. Abuse screen: Denies threats or abuse. Denies injuries from another. Nutritional screening: No deficits noted. Tuberculosis screening: No symptoms or risk factors identified. Assessment: 15:18 General: Appears in no apparent distress. Behavior is calm, cooperative. Pain: iw Complains of pain in back. Neuro: Level of Consciousness is awake, alert, obeys commands, Oriented to person, place, time, situation, Moves all extremities. Full function. Respiratory: Respiratory effort is even, unlabored, Respiratory pattern is regular, symmetrical. 15:18 Cardiovascular: Patient's skin is warm and dry. GI: Abdomen is round non-distended, Abd rs5 is soft and non tender X 4 quads. : No signs and/or symptoms were reported regarding the genitourinary system. EENT: No signs and/or symptoms were reported regarding the EENT system. Derm: Skin is intact, Skin is pink, warm \T\ dry. Musculoskeletal: Range of motion: intact in all extremities. 16:08 Reassessment: Patient appears in no apparent distress at this time. Patient and/or iw family updated on plan of care and expected duration. Pain level reassessed. Patient is alert, oriented x 3, equal unlabored respirations, skin warm/dry/pink. Vital Signs: 15:16 BP 156 / 88; Pulse 73; Resp 19; Temp 96.9; Pulse Ox 98% on R/A; Weight 158.76 kg; iw Height 5 ft. 4 in. ; Pain 6/10; 16:05 BP 151 / 84; Pulse 77; Resp 17; Temp 97.8(O); Pulse Ox 97% ; rs5 15:16 Body Mass Index 60.08 (158.76 kg, 162.56 cm) iw 15:16 Pain Scale: Adult ED Course: 14:58 Patient arrived in ED. ra3 15:17 Triage completed. iw 15:18 Poli Sandhu [facility]-C [facility]. dr5 15:18 Seth Perkins MD is Attending Physician. dr5 15:21 Arm band placed on. iw 15:25 Patient has correct armband on for positive identification. Placed in gown. Bed in low rs5 position. Call light in reach. Side rails up X2. 15:57 Toni Rodriguez, RN is Primary Nurse. rs5 16:05 Provided Education on: discharge instructions . rs5 16:08 No provider procedures requiring assistance completed. Patient did not have IV access iw during this emergency room visit. Administered Medications: 15:59 Drug: Dexamethasone IM 10 mg IM once Route: IM; Site: right deltoid; iw 15:59 Drug: Ketorolac IM 30 mg IM once Route: IM; Site: left deltoid; iw Medication: 16:10 VIS not applicable for this client. iw Outcome: 15:41 Discharge ordered by MD. dr5 16:08 Discharged to home ambulatory, iw 16:08 Condition: good 16:08 Discharge instructions given to patient, Instructed on discharge instructions, follow up and referral plans. Demonstrated understanding of instructions, follow-up care, 16:10 Patient left the ED. iw Signatures: Amanda Eugene RN RN Toni Rodriguez, RN RN rs5 Jessica Camargo ra3 Poli Sandhu, FUSE SPOOLER-C FUSE SPOOLER-Cdr5 Corrections: (The following items were deleted from the chart) 15:20 15:16 BP 156 / 88; Pulse 73bpm; Resp 19bpm; Pulse Ox 98% RA; Temp 96.9F; iw iw 17:01 16:22 BP 151 / 84; Pulse 77bpm; Resp 17bpm; Pulse Ox 97%; Temp 97.8F Oral; rs5 rs5 17:02 15:07 Provided Education on: discharge instructions . rs5 rs5
[2024-04-09] MEDS ORDERED: KETOROLAC 30 MG/ML INJ ONE (15:44)
[2024-04-09] MEDS ORDERED: dexAMETHasone 10 MG/ML VIAL ONE (15:44)
[2024-04-09 16:15] VITALS: BP 156/88; TEMP 96.9; O2SAT 98
== END 2024-04-09 16:10 | disposition home or self-care (01) ==
LOC: ER 14:54
DX: S39.012A Strain of muscle, fascia and tendon of lower back, initial encounter (principal)
CPT/HCPCS: 96372; 99284; J1100

== ENCOUNTER 2024-08-07 04:44 | Emergency (ER) | payer OTHER ==
[2024-08-07] MEDS ORDERED: ALBUTEROL 2.5 MG/3 ML NEB SOL ONE (05:19)
[2024-08-07] MEDS ORDERED: IPRATROPIUM BROM 0.5MG/2.5ML ONE (05:20)
[2024-08-07] MEDS ORDERED: predniSONE 20 MG TAB ONE (05:20)
[2024-08-07] MEDS ORDERED: AZITHROMYCIN 250 MG TAB ONE (07:48)
[2024-08-07] MEDS ORDERED: PANTOPRAZOLE 40MG TABLET PO ONE (07:48)
--- NOTE | 2024-08-07 08:00 | EDPHYS ---
Physician Documentation [facility] Name: Mayda Jean Age: 64 yrs Sex: Female : 1960 Arrival Date: 08/07/2024 Time: 04:44 Bed 15 Private MD: Eduardo Slade V ED Physician Silvino Noel HPI: 08/07 07:02 This 64 yrs old Female presents to ER via Ambulatory with complaints of Cough, rt Congestion. 07:02 Patient presents to the ED with cough, congestion. States that she feels like something rt in the back of her throat causing her to gag. States this been present for about 1 month. Her primary care put her on Robitussin, antibiotics, states she had modest relief, symptoms then returned. Denies other acute complaints at this time, symptoms are mild in severity, no other aggravating or alleviating factors.. Historical: - Allergies: 05:03 Topamax; br2 - Immunization history:: Adult Immunizations up to date. - Infectious Disease History:: Denies. - Social history:: Smoking status: Patient/guardian denies using tobacco, Patient/guardian denies using alcohol, street drugs. - Family history:: not pertinent. ROS: 07:02 Constitutional: Negative for fever, chills, and weight loss, Cardiovascular: Negative rt for chest pain, palpitations, and edema, Abdomen/GI: Negative for abdominal pain, nausea, vomiting, diarrhea, and constipation, MS/Extremity: Negative for injury and deformity, Skin: Negative for injury, rash, and discoloration, Neuro: Negative for headache, weakness, numbness, tingling, and seizure, 07:02 ENT: Positive for rhinorrhea, Negative for sore throat, 07:02 Respiratory: Positive for cough, Negative for shortness of breath, Exam: 07:02 Constitutional: This is a well developed, well nourished patient who is awake, alert, rt and in no acute distress. Head/Face: Normocephalic, atraumatic. Chest/axilla: Normal chest wall appearance and motion. Nontender with no deformity. No lesions are appreciated. Cardiovascular: Regular rate and rhythm with a normal S1 and S2. No gallops, murmurs, or rubs. Normal PMI, no JVD. No pulse deficits. Abdomen/GI: Soft, non-tender, with normal bowel sounds. No distension or tympany. No guarding or rebound. No evidence of tenderness throughout. Skin: Warm, dry with normal turgor. Normal color with no rashes, no lesions, and no evidence of cellulitis. MS/ Extremity: Pulses equal, no cyanosis. Neurovascular intact. Full, normal range of motion. Neuro: Awake and alert, GCS 15, oriented to person, place, time, and situation. Cranial nerves II-XII grossly intact. Motor strength 5/5 in all extremities. Sensory grossly intact. Cerebellar exam normal. Normal gait. 07:02 Respiratory: Faint wheezes heard at the bases, no respiratory distress, Vital Signs: 05:00 BP 174 / 77; Pulse 85; Resp 18; Temp 97.3; Pulse Ox 99% on R/A; Weight 154.67 kg; br2 Height 5 ft. 4 in. ; Pain 0/10; 06:49 BP 135 / 88; Pulse 65; Resp 17 S; Pulse Ox 100% on R/A; lg3 05:00 Body Mass Index 58.53 (154.67 kg, 162.56 cm) br2 05:00 Pain Scale: Adult br2 MDM: 05:04 Medical Screening Exam initiated rt 07:43 Differential Diagnosis: Obstructed Airway Bronchitis Influenza Upper Respiratory mirza Infection Sinusitis Pharyngitis Otitis Media Viral Syndrome Pneumonia. Data reviewed: vital signs, nurses notes, lab test result(s), radiologic studies, plain films. Consideration of Admission/Observation Escalation of care including admission/observation considered. I considered the following discharge prescriptions or medication management in the emergency department Medications were administered in the Emergency Department. See MAR. Independent interpretation of the following test(s) in the Emergency Department X-Ray: My interpretation is cxr. 08/07 05:16 Order name: Chest Single View XRAY rt Administered Medications: 05:43 Drug: predniSONE PO 40 mg PO once Route: PO; lg3 06:10 Follow up: Response: No adverse reaction lg3 05:43 Drug: Albuterol Inhalation 2.5 mg Inhalation once Route: Inhalation; lg3 06:10 Follow up: Response: No adverse reaction lg3 05:43 Drug: Ipratropium Inhalation Aerosol 0.5 mg Inhalation once Route: Inhalation; lg3 06:10 Follow up: Response: No adverse reaction lg3 07:54 Drug: AZITHromycin PO 500 mg PO once Route: PO; iw 07:54 Drug: Pantoprazole PO 40 mg PO once Route: PO; iw 08:28 Drug: Tessalon Perle PO 200 mg PO once Route: PO; iw 08:28 Drug: Amoxicillin-Clavulanate PO 875 mg PO once Route: PO; iw Disposition Summary: 08/07/24 08:00 Discharge Ordered Notes: Location: Home mirza Problem: new mirza Symptoms: have improved mirza Condition: Stable mirza Diagnosis - Acute upper respiratory infection, unspecified mirza - Cough mirza - Obesity, unspecified mirza - Acute laryngitis mirza Followup: mirza - With: Eduardo Slade MD - When: 2 - 3 days - Reason: Recheck today's complaints, Continuance of care, Re-evaluation by your physician Followup: mirza - With: Silvio Gaspar MD - When: 2 - 3 days - Reason: Recheck today's complaints, Re-evaluation by your physician Followup: mirza - With: Linda Gutierrez MD - When: 5 - 6 days - Reason: Recheck today's complaints, Re-evaluation by your physician Discharge Instructions: - Discharge Summary Sheet mirza - Laryngitis mirza - Obesity, Adult mirza - Cool Mist Vaporizer mirza - Upper Respiratory Infection, Adult, Gdwh-ka-Ikzm mirza - Cough, Adult, Ivrl-gm-Ieqm mirza - Cough, Adult [facility] Forms: - Medication Reconciliation Form [facility] - Antibiotic Education mirza - Prescription Opioid Use mirza - Patient Portal Instructions [facility] - Leadership Thank You Letter [facility] Prescriptions: - albuterol sulfate 90 mcg/actuation Inhalation HFA Aerosol Inhaler - inhale 2 puff INHALATION route every 4 to 6 hours as needed for shortness of mirza breath or wheezing; 1 unit; Refills: 0, Product Selection Permitted - Augmentin 875-125 mg Oral tablet - take 1 tablet ORAL route every 12 hours for 7 days; 14 tablet; Refills: 0, [facility] Product Selection Permitted - Protonix 40 mg Oral Tablet - take 1 tablet ORAL route once daily; 30 tablet; Refills: 0, Product Selection mirza Permitted - Tessalon Perles 100 mg Oral capsule - take 1 capsule ORAL route every 8 hours As needed; 30 capsule; Refills: 0, [facility] Product Selection Permitted - Zithromax 500 mg Oral Tablet - take 1 tablet ORAL route once daily for 5 days; 5 tablet; Refills: 0, Product mirza Selection Permitted Signatures: Dispatcher [employer] Silvino Anderson MD MD cha Williams, Irene, RN RN Ania Barnett RN RN lg3 Cory Seay MD MD rt Riddle, Belinda RN RN br2
--- NOTE | 2024-08-07 08:00 | ER ---
Nurse's Notes [facility] Name: Mayda Jean Age: 64 yrs Sex: Female : 1960 Arrival Date: 08/07/2024 Time: 04:44 Bed 15 Private MD: Eduardo Slade V Diagnosis: Acute upper respiratory infection, unspecified;Cough;Obesity, unspecified;Acute laryngitis Presentation: 08/07 05:00 Chief complaint: Patient states: PROD COUGH, NAUSEA, FEELS SOMETHING IN BACK OF THROAT br2 AND "PLUGGED UP". PT DENIES PAIN. Coronavirus screen: Client denies travel out of the [place] in the last 14 days. Ebola Screen: Patient denies exposure to infectious person. Initial Sepsis Screen: Does the patient meet any 2 criteria? No. Patient's initial sepsis screen is negative. Does the patient have a suspected source of infection? No. Patient's initial sepsis screen is negative. Risk Assessment: Do you want to hurt yourself or someone else? Patient reports no desire to harm self or others. Onset of symptoms is unknown. 05:00 Method Of Arrival: Ambulatory br2 05:00 Acuity: LUIS 3 br2 Triage Assessment: 05:03 General: Appears in no apparent distress. comfortable, Behavior is calm, cooperative. br2 Pain: Denies pain. Respiratory: Airway is patent Respiratory effort is even, unlabored, Respiratory pattern is regular, symmetrical. Historical: - Allergies: 05:03 Topamax; br2 - Immunization history:: Adult Immunizations up to date. - Infectious Disease History:: Denies. - Social history:: Smoking status: Patient/guardian denies using tobacco, Patient/guardian denies using alcohol, street drugs. - Family history:: not pertinent. Screenin:10 [facility] ED Fall Risk Assessment (Adult) History of falling in the last 3 months, lg3 including since admission No falls in past 3 months (0 pts) Confusion or Disorientation No (0 pts) Intoxicated or Sedated No (0 pts) Impaired Gait Yes (1 pt) Mobility Assist Device Used Yes (1 pt) Altered Elimination No (0 pt) Score/Fall Risk Level 0 - 2 = Low Risk Oriented to surroundings, Maintained a safe environment, Educated pt \\T\\ family on fall prevention, incl call for assistance when getting out of bed, Assessed \\T\\ reinforced patient's understanding of fall precautions. Abuse screen: Denies threats or abuse. Denies injuries from another. Nutritional screening: No deficits noted. Tuberculosis screening: No symptoms or risk factors identified. Assessment: 05:10 General: Appears in no apparent distress. uncomfortable, Behavior is calm, cooperative. lg3 Pain: Denies pain. Neuro: No deficits noted. Caldwell Agitation-Sedation Scale (RASS): 0 - Alert and Calm Level of Consciousness is awake, alert, obeys commands, Oriented to person, place, time, situation. Cardiovascular: No deficits noted. Denies chest pain, shortness of breath, Heart tones S1 S2 present Capillary refill < 3 seconds Clubbing of nail beds is absent JVD is absent Patient's skin is warm and dry. Respiratory: Reports cough that is productive, persistent Airway is patent Respiratory effort is even, unlabored, Respiratory pattern is regular, symmetrical, Breath sounds are clear bilaterally. GI: No deficits noted. No signs and/or symptoms were reported involving the gastrointestinal system. Abdomen is round non-distended, obese. : No signs and/or symptoms were reported regarding the genitourinary system. EENT: No deficits noted. Throat is clear Reports nasal congestion. Derm: No deficits noted. No signs and/or symptoms reported regarding the dermatologic system. Skin is intact, is healthy with good turgor, Skin is dry, Skin is normal, Skin temperature is warm. Musculoskeletal: No deficits noted. No signs and/or symptoms reported regarding the musculoskeletal system. Circulation, motion, and sensation intact. Range of motion: intact in all extremities. 06:50 Reassessment: Patient appears in no apparent distress at this time. No changes from lg3 previously documented assessment. Patient and/or family updated on plan of care and expected duration. Pain level reassessed. Patient is alert, oriented x 3, equal unlabored respirations, skin warm/dry/pink. 07:42 General: Appears in no apparent distress. Behavior is calm, cooperative. Pain: Denies iw pain. Neuro: Level of Consciousness is awake, alert, obeys commands, Oriented to person, place, time, situation. Respiratory: Reports cough that is productive, persistent Respiratory effort is even, unlabored, Respiratory pattern is regular, symmetrical. Derm: Skin is pink, warm \\T\\ dry. normal. Musculoskeletal: Range of motion:. Vital Signs: 05:00 BP 174 / 77; Pulse 85; Resp 18; Temp 97.3; Pulse Ox 99% on R/A; Weight 154.67 kg; br2 Height 5 ft. 4 in. ; Pain 0/10; 06:49 BP 135 / 88; Pulse 65; Resp 17 S; Pulse Ox 100% on R/A; lg3 05:00 Body Mass Index 58.53 (154.67 kg, 162.56 cm) br2 05:00 Pain Scale: Adult br2 ED Course: 04:45 Patient arrived in ED. jj6 04:45 Eduardo Slade MD is Private Physician. jj6 04:47 Cory Seay MD is Attending Physician. rt 05:03 Triage completed. br2 05:03 Arm band placed on. br2 05:10 Patient has correct armband on for positive identification. Bed in low position. Call lg3 light in reach. Side rails up X 1. Client placed on continuous cardiac and pulse oximetry monitoring. NIBP monitoring applied. Door closed. Noise minimized. Warm blanket given. Pillow given. Family accompanied patient. 05:49 Ania Chamberlain, RN is Primary Nurse. lg3 06:57 Chest Single View XRAY In Process Unspecified. EDMS 07:10 Attending Physician role handed off by Cory Seay MD mirza 07:10 Silvino Noel MD is Attending Physician. mirza 07:43 Primary Nurse role handed off by Ania Chamberlain, RN iw 07:43 Amanda Eugene, YANIQUE is Primary Nurse. iw 07:43 No provider procedures requiring assistance completed. Patient did not have IV access iw during this emergency room visit. 08:00 Eduardo Slade MD is Referral Physician. mirza 08:00 Silvio Gaspar MD is Referral Physician. mirza 08:01 Linda Gutierrez MD is Referral Physician. mirza Administered Medications: 05:43 Drug: predniSONE PO 40 mg PO once Route: PO; lg3 06:10 Follow up: Response: No adverse reaction lg3 05:43 Drug: Albuterol Inhalation 2.5 mg Inhalation once Route: Inhalation; lg3 06:10 Follow up: Response: No adverse reaction lg3 05:43 Drug: Ipratropium Inhalation Aerosol 0.5 mg Inhalation once Route: Inhalation; lg3 06:10 Follow up: Response: No adverse reaction lg3 07:54 Drug: AZITHromycin PO 500 mg PO once Route: PO; iw 07:54 Drug: Pantoprazole PO 40 mg PO once Route: PO; iw 08:28 Drug: Tessalon Perle PO 200 mg PO once Route: PO; iw 08:28 Drug: Amoxicillin-Clavulanate PO 875 mg PO once Route: PO; iw Medication: 05:10 VIS not applicable for this client. lg3 Outcome: 08:00 Discharge ordered by . [facility] 08:28 Patient left the ED. iw Signatures: Dispatcher [employer] EDMS Silvino Noel MD MD cha Williams, Irene RN RN iw Ania Chamberlain RN RN lg3 Lucy [id number] Cory Seay MD MD rt Sena Walton RN RN br2
[2024-08-07] MEDS ORDERED: AMOX/K CLAV 875 MG TAB ONE (08:23)
[2024-08-07] MEDS ORDERED: BENZONATATE 100 MG CAP PO ONE (08:23)
[2024-08-07 08:33] VITALS: TEMP 97.3
[2024-08-07 08:35] VITALS: BP 135/88; O2SAT 100
--- NOTE | 2024-08-07 08:56 | RAD REPORT ---
EXAMINATION: ONE VIEW CHEST XR CLINICAL INDICATION: COUGH TECHNIQUE: Frontal chest projection is submitted. Examination is limited by patient positioning and t echnique. COMPARISON: 09/22/2016 FINDINGS: Nonspecific peribronchial thickening without focal consolidation could represent a viral or inflammat ory process. The heart is upper limit of normal in size. No displaced fractures identified. Cervical spine hardware plate.
== END 2024-08-07 08:28 | disposition home or self-care (01) ==
LOC: ER 04:44
DX: J06.9 Acute upper respiratory infection, unspecified (principal); J04.0 Acute laryngitis; E66.9 Obesity, unspecified
CPT/HCPCS: 71045; 99284; J7512; J7613; J7644